=== PATIENT | female | born 1965 | race Caucasian/White ===

== ENCOUNTER 2018-09-07 19:54 | Inpatient (IN) | payer MEDICAID, OTHER ==
[2018-09-07 20:35] LABS: ADD MAN DIFF? NO
[2018-09-07 20:36] LABS: BASOPHILS % 0.5 % (0.0-2.0); EOSINOPHILS # 0.1 10^3/ul (0.0-0.5); HEMATOCRIT 35.4 % (37.0-47.0); HEMOGLOBIN 11.8 g/dl (12.0-16.0); LYMPHOCYTES # 2.7 10^3/ul (0.8-2.9); LYMPHOCYTES % 45.7 % (15.0-51.0); MEAN CORPUSCULAR HEMOGLOBIN 30.3 pg (29.0-33.0); MEAN CORPUSCULAR HGB CONC 33.3 g/dl (32.0-37.0); MEAN CORPUSCULAR VOLUME 90.8 fl (82.0-101.0); MEAN PLATELET VOLUME 9.8 fl (7.4-10.4); MONOCYTE # 0.5 10^3/ul (0.3-0.9); NEUTROPHIL # 2.6 10^3/ul (1.6-7.5); NEUTROPHILS % 43.6 % (39.0-77.0); PLATELET COUNT 282 10^3/UL (140-415)
[2018-09-07] MEDS: KETOROLAC 30 MG INJ IV (20:41)
[2018-09-07 20:55] LABS: ANION GAP 8 (5-13); BLOOD UREA NITROGEN 19 mg/dl (7-20); CALCIUM 9.6 mg/dl (8.4-10.2); CARBON DIOXIDE 26 mmol/L (21-31); CHLORIDE 106 mmol/L (97-110); CREATININE 0.88 mg/dl (0.44-1.00); Estimated GFR > 60 mL/min (>60); GLUCOSE 124 mg/dl (70-220); POTASSIUM 4.4 mmol/L (3.5-5.1); SODIUM 140 mmol/L (135-144)
[2018-09-07 21:07] LABS: TROPONIN-I < 0.012 ng/ml (0.000-0.120)
[2018-09-07 21:12] LABS: FREE T4 (FREE THYROXINE) 0.83 ng/dl (0.64-1.79)
[2018-09-07] MEDS: ASPIRIN 81 MG TAB PO (22:22)
[2018-09-07] MEDS: NITROGLYCERIN 2% 1 GM OINT PKT TD (22:22)
[2018-09-07] MEDS: NITROGLYCERIN (SL) 0.4 MG TAB SL (22:23)
[2018-09-07] MEDS ORDERED: ACETAMINOPHEN 325 MG TAB PO (23:30)
[2018-09-07] MEDS ORDERED: ONDANSETRON 4 MG INJ IV (23:30)
[2018-09-08] MEDS: RANITIDINE 150 MG TAB PO ×3 (01:08→20:09)
[2018-09-08] MEDS: AL HYDROX/MG HYDROX/SIMETH 30 ML CUP PO ×2 (01:08→20:09)
[2018-09-08] MEDS: NITROGLYCERIN (SL) 0.4 MG TAB SL (01:21)
[2018-09-08] MEDS: ENALAPRIL 5 MG TAB PO (01:58)
[2018-09-08 02:27] LABS: ADD UMIC YES; UR ASCORBIC ACID 20 mg/dL (NEGATIVE); UR BACTERIA FEW /HPF (NONE SEEN); UR BILIRUBIN (Dip) NEGATIVE (NEGATIVE); UR BLOOD (Dip) NEGATIVE (NEGATIVE); UR CALCIUM OXALATE CRYSTAL MANY /HPF (NONE SEEN); UR CLARITY CLOUDY (CLEAR); UR COLOR YELLOW (YELLOW); UR GLUCOSE (Dip) NEGATIVE (NEGATIVE); UR KETONES (Dip) NEGATIVE (NEGATIVE); UR LEUKOCYTE ESTERASE (Dip) 2+ Leu/ul (NEGATIVE); UR MUCUS MANY /HPF (NONE SEEN); UR NITRITE (Dip) NEGATIVE (NEGATIVE); UR RBC 5 /HPF (0-5); UR SPECIFIC GRAVITY (Dip) 1.031 (1.003-1.030); UR SQUAMOUS EPITHELIAL CELL MODERATE /HPF (FEW); UR TOTAL PROTEIN (Dip) 1+ mg/dl (NEGATIVE); UR TRANSITIONAL EPI CELL FEW /HPF (NONE SEEN); UR UROBILINOGEN (Dip) NEGATIVE (NEGATIVE); UR WBC > 182 /HPF (0-5)
[2018-09-08 02:42] LABS: MAGNESIUM 1.9 mg/dl (1.7-2.5)
[2018-09-08 02:42] LABS: AMYLASE 90 U/L (11-123); CREATINE KINASE 70 IU/L (23-200); IRON 69 ug/dl (35-150); LIPASE 123 U/L (23-300)
[2018-09-08 02:51] LABS: % IRON SATURATION 20 % SAT (22-52); TOTAL IRON BINDING CAPACITY 349 ug/dl (241-421)
[2018-09-08 02:54] LABS: CK-MB 0.67 ng/ml (0.0-2.4); TROPONIN-I < 0.012 ng/ml (0.000-0.120)
[2018-09-08] MEDS: MAGNESIUM SULFATE 2 GM/50 ML 50 ML IVPB (03:57)
[2018-09-08 09:15] LABS: CREATINE KINASE 66 IU/L (23-200)
[2018-09-08 09:26] LABS: CK INDEX 0.8; CK-MB 0.54 ng/ml (0.0-2.4); TROPONIN-I < 0.012 ng/ml (0.000-0.120)
[2018-09-08] MEDS: ACETAMINOPHEN 500 MG TAB PO (09:31)
[2018-09-08] MEDS: AMLODIPINE 5 MG TAB PO (09:31)
[2018-09-08] MEDS: ENOXAPARIN 40 MG/0.4 ML SYG SC (09:48)
[2018-09-08] MEDS: LOSARTAN 25 MG TAB PO (12:04)
[2018-09-08] MEDS: ATORVASTATIN 20 MG TAB PO (20:08)
[2018-09-09] MEDS: REGADENOSON 0.4 MG/5 ML SYG (08:58)
[2018-09-09] MEDS: RANITIDINE 150 MG TAB PO ×2 (10:22→20:52)
[2018-09-09] MEDS: AMLODIPINE 5 MG TAB PO (10:22)
[2018-09-09] MEDS: LOSARTAN 25 MG TAB PO (10:22)
[2018-09-09] MEDS: ENOXAPARIN 40 MG/0.4 ML SYG SC (10:23)
[2018-09-09] MEDS: NITROGLYCERIN (SL) 0.4 MG TAB SL ×3 (11:55→19:08)
[2018-09-09] MEDS: ONDANSETRON 4 MG INJ IV (11:58)
[2018-09-09] MEDS: ASPIRIN 81 MG TAB PO (13:10)
[2018-09-09] MEDS: METOPROLOL 25 MG TAB PO (13:10)
[2018-09-09] MEDS: IOHEXOL 100 ML (16:36)
[2018-09-09] MEDS: SOD CHLORIDE 0.9% 100 ML (16:36)
[2018-09-09] MEDS: ATORVASTATIN 20 MG TAB PO (20:51)
[2018-09-09] MEDS: SOD CHLORIDE 0.9% 1,000 ML IV (20:55)
[2018-09-10 06:08] LABS: ADD MAN DIFF? NO
[2018-09-10 06:20] LABS: WHITE BLOOD COUNT 5.4 10^3/ul (4.8-10.8)
[2018-09-10 06:20] LABS: BASOPHILS % 0.4 % (0.0-2.0); EOSINOPHILS # 0.1 10^3/ul (0.0-0.5); EOSINOPHILS % 1.9 % (0.0-7.0); HEMATOCRIT 35.3 % (37.0-47.0); HEMOGLOBIN 11.8 g/dl (12.0-16.0); LYMPHOCYTES # 2.1 10^3/ul (0.8-2.9); LYMPHOCYTES % 38.7 % (15.0-51.0); MEAN CORPUSCULAR HEMOGLOBIN 30.3 pg (29.0-33.0); MEAN CORPUSCULAR HGB CONC 33.4 g/dl (32.0-37.0); MEAN CORPUSCULAR VOLUME 90.7 fl (82.0-101.0); MEAN PLATELET VOLUME 9.7 fl (7.4-10.4); MONOCYTE # 0.4 10^3/ul (0.3-0.9); MONOCYTES % 8.1 % (0.0-11.0); NEUTROPHIL # 2.7 10^3/ul (1.6-7.5); NEUTROPHILS % 50.7 % (39.0-77.0); PLATELET COUNT 241 10^3/UL (140-415); RED BLOOD COUNT 3.89 10^6/ul (4.20-5.40); RED CELL DISTRIBUTION WIDTH 12.8 % (11.5-14.5)
[2018-09-10 06:44] LABS: ANION GAP 11 (5-13); BLOOD UREA NITROGEN 15 mg/dl (7-20); CALCIUM 9.1 mg/dl (8.4-10.2); CARBON DIOXIDE 25 mmol/L (21-31); CHLORIDE 107 mmol/L (97-110); Estimated GFR > 60 mL/min (>60); GLUCOSE 99 mg/dl (70-220); POTASSIUM 4.1 mmol/L (3.5-5.1); SODIUM 143 mmol/L (135-144)
[2018-09-10] MEDS: AMLODIPINE 5 MG TAB PO (08:00)
[2018-09-10] MEDS: LOSARTAN 25 MG TAB PO (08:00)
[2018-09-10] MEDS: RANITIDINE 150 MG TAB PO ×2 (08:00→21:11)
[2018-09-10] MEDS: ASPIRIN 81 MG TAB PO (08:00)
[2018-09-10] MEDS: ENOXAPARIN 40 MG/0.4 ML SYG SC (08:01)
[2018-09-10] MEDS ORDERED: IODIXANOL LOCM 100 ML BTL (08:40)
[2018-09-10] MEDS ORDERED: SOD CHLORIDE 0.9% 500 ML (08:40)
[2018-09-10] MEDS ORDERED: LIDOCAINE 2% (MDV) 20 ML INJ (08:40)
[2018-09-10] MEDS ORDERED: HEPARIN 1000 UNITS/ML 10 ML INJ (08:40)
[2018-09-10] MEDS ORDERED: FENTAnyl 50 MCG/ML VIAL (08:40)
[2018-09-10] MEDS ORDERED: VERAPAMIL 5 MG INJ (08:41)
[2018-09-10] MEDS ORDERED: MIDAZOLAM 1 MG/ML 2 ML INJ (08:41)
[2018-09-10] MEDS ORDERED: NITROGLYCERIN (IC) 100 MCG/ML INJ (08:41)
[2018-09-10] MEDS ORDERED: TICAGRELOR 90 MG TABLET (09:40)
[2018-09-10] MEDS ORDERED: ASPIRIN 325 MG TAB (09:40)
[2018-09-10] MEDS: SOD CHLORIDE 0.9% 1,000 ML IV (09:50)
[2018-09-10] MEDS: morphine 2 MG INJ IV (12:09)
[2018-09-10] MEDS: ACETAMINOPHEN 500 MG TAB PO (19:57)
[2018-09-10] MEDS: ATORVASTATIN 20 MG TAB PO (21:11)
[2018-09-10] MEDS: TICAGRELOR 90 MG TABLET PO (21:13)
[2018-09-11] MEDS: AMLODIPINE 5 MG TAB PO (09:24)
[2018-09-11] MEDS: LOSARTAN 25 MG TAB PO (09:24)
[2018-09-11] MEDS: RANITIDINE 150 MG TAB PO (09:24)
[2018-09-11] MEDS: ASPIRIN 81 MG TAB PO (09:24)
[2018-09-11] MEDS: TICAGRELOR 90 MG TABLET PO (09:25)
[2018-09-11] MEDS: ENOXAPARIN 40 MG/0.4 ML SYG SC (09:26)
== END 2018-09-11 13:45 | disposition home or self-care (01) | DRG 247 ==
LOC: E/R 19:54 → TEL 09-10 10:19
PROC: 027034Z Dilation of Coronary Artery, One Artery with Drug-eluting Intraluminal Device, Percutaneous Approach (ICD-10-PCS; principal; 2018-09-10 08:40)
PROC: 4A023N7 Measurement of Cardiac Sampling and Pressure, Left Heart, Percutaneous Approach (ICD-10-PCS; 2018-09-10 08:40)
DX: I25.119 Atherosclerotic heart disease of native coronary artery with unspecified angina pectoris (principal); I16.9 Hypertensive crisis, unspecified; I25.82 Chronic total occlusion of coronary artery; R07.9 Chest pain, unspecified; M17.12 Unilateral primary osteoarthritis, left knee; N94.3 Premenstrual tension syndrome; F41.9 Anxiety disorder, unspecified; E78.5 Hyperlipidemia, unspecified; R06.81 Apnea, not elsewhere classified; Z96.651 Presence of right artificial knee joint; R10.13 Epigastric pain; K21.9 Gastro-esophageal reflux disease without esophagitis; E83.42 Hypomagnesemia; D63.8 Anemia in other chronic diseases classified elsewhere; I25.2 Old myocardial infarction; Z87.891 Personal history of nicotine dependence
CPT/HCPCS: 36415; 71045; 75574; 76700; 78452; 80048; 81001; 82150; 82550; 82553; 83540; 83690; 83735; 84439; 84443; 84484; 85025; 87086; 93005; 93017; 93306; 96374; 99285-25; G0378

== ENCOUNTER 2018-09-11 16:05 | Inpatient (IN) | payer MEDICAID ==
[2018-09-11] MEDS ORDERED: NITROGLYCERIN (SL) 0.4 MG TAB (16:31)
[2018-09-11 16:37] LABS: ADD MAN DIFF? NO
[2018-09-11 16:40] LABS: WHITE BLOOD COUNT 5.5 10^3/ul (4.8-10.8)
[2018-09-11 16:40] LABS: BASOPHILS % 0.4 % (0.0-2.0); EOSINOPHILS # 0.1 10^3/ul (0.0-0.5); EOSINOPHILS % 0.9 % (0.0-7.0); HEMATOCRIT 35.3 % (37.0-47.0); LYMPHOCYTES # 1.7 10^3/ul (0.8-2.9); MEAN CORPUSCULAR HEMOGLOBIN 30.5 pg (29.0-33.0); MEAN CORPUSCULAR VOLUME 89.8 fl (82.0-101.0); MEAN PLATELET VOLUME 9.3 fl (7.4-10.4); MONOCYTE # 0.5 10^3/ul (0.3-0.9); MONOCYTES % 8.7 % (0.0-11.0); NEUTROPHIL # 3.3 10^3/ul (1.6-7.5); NEUTROPHILS % 59.8 % (39.0-77.0); PLATELET COUNT 254 10^3/UL (140-415); RED BLOOD COUNT 3.93 10^6/ul (4.20-5.40); RED CELL DISTRIBUTION WIDTH 12.7 % (11.5-14.5)
[2018-09-11] MEDS: NITROGLYCERIN (SL) 0.4 MG TAB SL (16:57)
[2018-09-11 16:59] LABS: ANION GAP 13 (5-13); BLOOD UREA NITROGEN 15 mg/dl (7-20); CALCIUM 10.1 mg/dl (8.4-10.2); CARBON DIOXIDE 26 mmol/L (21-31); CHLORIDE 102 mmol/L (97-110); CREATININE 0.88 mg/dl (0.44-1.00); Estimated GFR > 60 mL/min (>60); GLUCOSE 110 mg/dl (70-220); POTASSIUM 4.2 mmol/L (3.5-5.1); SODIUM 141 mmol/L (135-144)
[2018-09-11 17:11] LABS: TROPONIN-I 0.029 ng/ml (0.000-0.120)
[2018-09-11 20:21] LABS: TROPONIN-I 0.034 ng/ml (0.000-0.120)
[2018-09-11] MEDS: ASPIRIN 81 MG TAB PO (20:54)
[2018-09-11] MEDS ORDERED: ACETAMINOPHEN 325 MG TAB PO ×2 (21:00)
[2018-09-11] MEDS ORDERED: ONDANSETRON 4 MG INJ IV ×3 (21:00→23:00)
[2018-09-11] MEDS: METOPROLOL 50 MG TAB PO (22:00)
[2018-09-11] MEDS ORDERED: ACETAMINOPHEN 500 MG TAB PO (22:30)
[2018-09-11] MEDS ORDERED: NITROGLYCERIN (SL) 0.4 MG TAB SL (22:30)
[2018-09-11] MEDS ORDERED: morphine 2 MG INJ IV (22:30)
[2018-09-11] MEDS: morphine 2 MG INJ IV (22:48)
[2018-09-11] MEDS: RANITIDINE 150 MG TAB PO (22:49)
[2018-09-11 23:06] LABS: CREATINE KINASE 50 IU/L (23-200)
[2018-09-11 23:17] LABS: CK-MB 0.49 ng/ml (0.0-2.4)
[2018-09-12] MEDS: NITROGLYCERIN 0.1 MG/HR PATCH TRANSDERM ×2 (00:09→09:18)
[2018-09-12] MEDS: morphine 2 MG INJ IV (02:00)
[2018-09-12 07:39] LABS: CREATINE KINASE 55 IU/L (23-200)
[2018-09-12 07:52] LABS: CK INDEX 0.8; CK-MB 0.44 ng/ml (0.0-2.4)
[2018-09-12] MEDS: METOPROLOL 50 MG TAB PO (09:00)
[2018-09-12] MEDS: RANITIDINE 150 MG TAB PO (09:17)
[2018-09-12] MEDS: AMLODIPINE 5 MG TAB PO (09:17)
[2018-09-12] MEDS: ASPIRIN 81 MG TAB PO (09:18)
[2018-09-12] MEDS: LOSARTAN 25 MG TAB PO (09:18)
[2018-09-12] MEDS: TICAGRELOR 90 MG TABLET PO (09:21)
[2018-09-12 12:09] LABS: ADD MAN DIFF? NO
[2018-09-12 12:16] LABS: BASOPHILS % 0.2 % (0.0-2.0); EOSINOPHILS # 0.1 10^3/ul (0.0-0.5); EOSINOPHILS % 1.5 % (0.0-7.0); HEMATOCRIT 35.3 % (37.0-47.0); HEMOGLOBIN 11.6 g/dl (12.0-16.0); LYMPHOCYTES # 1.6 10^3/ul (0.8-2.9); LYMPHOCYTES % 29.5 % (15.0-51.0); MEAN CORPUSCULAR HEMOGLOBIN 30.1 pg (29.0-33.0); MEAN CORPUSCULAR HGB CONC 32.9 g/dl (32.0-37.0); MEAN CORPUSCULAR VOLUME 91.7 fl (82.0-101.0); MEAN PLATELET VOLUME 9.4 fl (7.4-10.4); MONOCYTE # 0.5 10^3/ul (0.3-0.9); MONOCYTES % 9.8 % (0.0-11.0); NEUTROPHIL # 3.2 10^3/ul (1.6-7.5); NEUTROPHILS % 58.8 % (39.0-77.0); PLATELET COUNT 246 10^3/UL (140-415); RED BLOOD COUNT 3.85 10^6/ul (4.20-5.40); RED CELL DISTRIBUTION WIDTH 12.8 % (11.5-14.5)
[2018-09-12 12:16] LABS: WHITE BLOOD COUNT 5.4 10^3/ul (4.8-10.8)
[2018-09-12 12:31] LABS: IRON 83 ug/dl (35-150)
[2018-09-12 12:34] LABS: ALANINE AMINOTRANSFERASE 42 IU/L (13-69); ALBUMIN 3.7 g/dl (3.3-4.9); ALBUMIN/GLOBULIN RATIO 1.05; ALKALINE PHOSPHATASE 54 IU/L (42-121); ANION GAP 11 (5-13); ASPARTATE AMINO TRANSFERASE 29 IU/L (15-46); BILIRUBIN,INDIRECT 0.1 mg/dl (0-1.1); BILIRUBIN,TOTAL 0.1 mg/dl (0.2-1.3); BLOOD UREA NITROGEN 16 mg/dl (7-20); CALCIUM 9.7 mg/dl (8.4-10.2); CARBON DIOXIDE 29 mmol/L (21-31); CHLORIDE 103 mmol/L (97-110); CREATINE KINASE 53 IU/L (23-200); CREATININE 0.73 mg/dl (0.44-1.00); Estimated GFR > 60 mL/min (>60); GLUCOSE 77 mg/dl (70-220); MAGNESIUM 1.9 mg/dl (1.7-2.5); POTASSIUM 4.4 mmol/L (3.5-5.1); SODIUM 143 mmol/L (135-144); TOTAL PROTEIN 7.2 g/dl (6.1-8.1)
[2018-09-12 12:40] LABS: % IRON SATURATION 22 % SAT (22-52); TOTAL IRON BINDING CAPACITY 377 ug/dl (241-421)
[2018-09-12 12:43] LABS: CK INDEX 0.6; CK-MB 0.32 ng/ml (0.0-2.4); TROPONIN-I < 0.012 ng/ml (0.000-0.120)
[2018-09-12] MEDS ORDERED: ATORVASTATIN 40 MG TAB PO (21:00)
== END 2018-09-12 17:00 | disposition home or self-care (01) | DRG 313 ==
LOC: E/R 16:05 → TEL 20:41
DX: R07.9 Chest pain, unspecified (principal); I10 Essential (primary) hypertension; D63.8 Anemia in other chronic diseases classified elsewhere; M17.12 Unilateral primary osteoarthritis, left knee; N94.3 Premenstrual tension syndrome; F41.9 Anxiety disorder, unspecified; E78.5 Hyperlipidemia, unspecified; R06.81 Apnea, not elsewhere classified; Z96.651 Presence of right artificial knee joint; R10.13 Epigastric pain; K21.9 Gastro-esophageal reflux disease without esophagitis; Z72.820 Sleep deprivation; E83.42 Hypomagnesemia; Z95.5 Presence of coronary angioplasty implant and graft; I25.10 Atherosclerotic heart disease of native coronary artery without angina pectoris
CPT/HCPCS: 36415; 71045; 80048; 80053; 82550; 82553; 83540; 83735; 84484; 85025; 87081; 90686; 93005; 99285-25

== ENCOUNTER 2018-09-14 18:51 | Observation (INO) | payer MEDICAID ==
[2018-09-14 19:43] LABS: ADD MAN DIFF? NO
[2018-09-14 19:49] LABS: BASOPHILS % 0.3 % (0.0-2.0); EOSINOPHILS # 0.1 10^3/ul (0.0-0.5); EOSINOPHILS % 1.3 % (0.0-7.0); HEMATOCRIT 33.3 % (37.0-47.0); HEMOGLOBIN 11.1 g/dl (12.0-16.0); LYMPHOCYTES # 2.1 10^3/ul (0.8-2.9); LYMPHOCYTES % 33.8 % (15.0-51.0); MEAN CORPUSCULAR HEMOGLOBIN 30.4 pg (29.0-33.0); MEAN CORPUSCULAR HGB CONC 33.3 g/dl (32.0-37.0); MEAN CORPUSCULAR VOLUME 91.2 fl (82.0-101.0); MEAN PLATELET VOLUME 9.4 fl (7.4-10.4); MONOCYTE # 0.6 10^3/ul (0.3-0.9); MONOCYTES % 8.8 % (0.0-11.0); NEUTROPHIL # 3.5 10^3/ul (1.6-7.5); NEUTROPHILS % 55.6 % (39.0-77.0); PLATELET COUNT 248 10^3/UL (140-415); RED BLOOD COUNT 3.65 10^6/ul (4.20-5.40); RED CELL DISTRIBUTION WIDTH 13.2 % (11.5-14.5)
[2018-09-14 19:49] LABS: WHITE BLOOD COUNT 6.2 10^3/ul (4.8-10.8)
[2018-09-14 20:08] LABS: INR 1.03; PARTIAL THROMBOPLASTIN TIME 28.4 Sec (23.0-35.0); PROTIME 13.6 Sec (11.9-14.9); PT RATIO 1.1
[2018-09-14 20:09] LABS: ANION GAP 12 (5-13); BLOOD UREA NITROGEN 17 mg/dl (7-20); CALCIUM 9.8 mg/dl (8.4-10.2); CARBON DIOXIDE 22 mmol/L (21-31); CHLORIDE 106 mmol/L (97-110); CREATININE 0.71 mg/dl (0.44-1.00); Estimated GFR > 60 mL/min (>60); GLUCOSE 104 mg/dl (70-220); POTASSIUM 4.2 mmol/L (3.5-5.1); SODIUM 140 mmol/L (135-144)
[2018-09-14 20:21] LABS: TROPONIN-I < 0.012 ng/ml (0.000-0.120)
[2018-09-14 20:27] LABS: D-DIMER 248.22 ng/ml (<460)
[2018-09-14] MEDS: ASPIRIN 81 MG TAB PO (20:39)
[2018-09-14] MEDS: NITROGLYCERIN 2% 1 GM OINT PKT TD (20:39)
[2018-09-14] MEDS ORDERED: ACETAMINOPHEN 500 MG TAB PO ×2 (21:00→21:30)
[2018-09-14] MEDS ORDERED: LORAZEPAM 0.5 MG TAB PO (21:00)
[2018-09-14] MEDS: morphine 2 MG INJ IV (22:20)
[2018-09-14] MEDS: TICAGRELOR 90 MG TABLET PO (22:54)
[2018-09-14 23:55] LABS: TROPONIN-I 0.015 ng/ml (0.000-0.120)
[2018-09-15] MEDS: morphine 2 MG INJ IV (04:41)
[2018-09-15 05:56] LABS: CREATINE KINASE 100 IU/L (23-200)
[2018-09-15 06:06] LABS: CK INDEX 0.9; CK-MB 0.88 ng/ml (0.0-2.4)
[2018-09-15] MEDS ORDERED: ACETAMINOPHEN 500 MG TAB PO (07:30)
[2018-09-15] MEDS: ENALAPRIL 2.5 MG TAB PO (08:35)
[2018-09-15] MEDS: LOSARTAN 25 MG TAB PO (08:35)
[2018-09-15] MEDS: AMLODIPINE 5 MG TAB PO (08:35)
[2018-09-15] MEDS: ASPIRIN 81 MG TAB PO (08:35)
[2018-09-15] MEDS: RANITIDINE 150 MG TAB PO (08:35)
[2018-09-15] MEDS: TICAGRELOR 90 MG TABLET PO (08:38)
[2018-09-15] MEDS: ENOXAPARIN 40 MG/0.4 ML SYG SC (08:39)
[2018-09-15] MEDS ORDERED: ATORVASTATIN 20 MG TAB PO (09:00)
[2018-09-15] MEDS ORDERED: PANTOPRAZOLE 40 MG INJ IV (09:00)
[2018-09-15] MEDS ORDERED: METOPROLOL 50 MG TAB PO (09:00)
[2018-09-15] MEDS: NITROGLYCERIN AEROSOL (4.9 GM) (09:36)
[2018-09-15] MEDS: IOHEXOL 100 ML (10:05)
[2018-09-15] MEDS: SOD CHLORIDE 0.9% 100 ML (10:05)
[2018-09-15] MEDS ORDERED: ATORVASTATIN 40 MG TAB PO (21:00)
== END 2018-09-15 15:45 | disposition home or self-care (01) ==
LOC: E/R 18:51 → 6WM 20:30
DX: R07.9 Chest pain, unspecified (principal); I25.10 Atherosclerotic heart disease of native coronary artery without angina pectoris; Z95.5 Presence of coronary angioplasty implant and graft; I10 Essential (primary) hypertension; E78.5 Hyperlipidemia, unspecified; Z79.82 Long term (current) use of aspirin; D63.8 Anemia in other chronic diseases classified elsewhere; M17.12 Unilateral primary osteoarthritis, left knee; F41.9 Anxiety disorder, unspecified; R06.83 Snoring; G47.30 Sleep apnea, unspecified; R10.13 Epigastric pain; K21.9 Gastro-esophageal reflux disease without esophagitis; Z72.820 Sleep deprivation; E83.42 Hypomagnesemia; M53.1 Cervicobrachial syndrome
CPT/HCPCS: 36415; 71045; 75574; 80048; 82550; 82553; 84484; 85025; 85378; 85610; 85730; 87081; 93005; 99285-25; G0378

== ENCOUNTER 2019-01-21 19:08 | Emergency (ER) | payer OTHER, MEDICAID ==
[2019-01-21 20:08] LABS: ADD MAN DIFF? NO
[2019-01-21 20:17] LABS: BASOPHILS % 0.6 % (0.0-2.0); EOSINOPHILS # 0.1 10^3/ul (0.0-0.5); EOSINOPHILS % 1.2 % (0.0-7.0); HEMATOCRIT 36.1 % (37.0-47.0); HEMOGLOBIN 11.9 g/dl (12.0-16.0); LYMPHOCYTES # 1.8 10^3/ul (0.8-2.9); LYMPHOCYTES % 33.8 % (15.0-51.0); MEAN CORPUSCULAR HEMOGLOBIN 30.1 pg (29.0-33.0); MEAN CORPUSCULAR VOLUME 91.4 fl (82.0-101.0); MEAN PLATELET VOLUME 9.4 fl (7.4-10.4); MONOCYTE # 0.5 10^3/ul (0.3-0.9); MONOCYTES % 9.9 % (0.0-11.0); NEUTROPHIL # 2.8 10^3/ul (1.6-7.5); NEUTROPHILS % 54.3 % (39.0-77.0); PLATELET COUNT 244 10^3/UL (140-415); RED BLOOD COUNT 3.95 10^6/ul (4.20-5.40); RED CELL DISTRIBUTION WIDTH 13.2 % (11.5-14.5)
[2019-01-21 20:17] LABS: WHITE BLOOD COUNT 5.2 10^3/ul (4.8-10.8)
[2019-01-21] MEDS: ALPRAZOLAM 0.25 MG TAB PO (20:25)
[2019-01-21] MEDS: KETOROLAC 15 MG INJ IV (20:25)
[2019-01-21] MEDS: SOD CHLORIDE 0.9% 1,000 ML IV (20:25)
[2019-01-21 20:36] LABS: ALANINE AMINOTRANSFERASE 98 IU/L (13-69); ALBUMIN 4.6 g/dl (3.3-4.9); ALBUMIN/GLOBULIN RATIO 1.35; ALKALINE PHOSPHATASE 72 IU/L (42-121); ANION GAP 12 (5-13); ASPARTATE AMINO TRANSFERASE 56 IU/L (15-46); BILIRUBIN,INDIRECT 0.2 mg/dl (0-1.1); BILIRUBIN,TOTAL 0.2 mg/dl (0.2-1.3); BLOOD UREA NITROGEN 14 mg/dl (7-20); CALCIUM 9.7 mg/dl (8.4-10.2); CARBON DIOXIDE 24 mmol/L (21-31); CHLORIDE 108 mmol/L (97-110); CREATININE 0.63 mg/dl (0.44-1.00); Estimated GFR > 60 mL/min (>60); GLUCOSE 98 mg/dl (70-220); LIPASE 134 U/L (23-300); POTASSIUM 3.8 mmol/L (3.5-5.1); SODIUM 144 mmol/L (135-144)
[2019-01-21 20:47] LABS: TROPONIN-I < 0.012 ng/ml (0.000-0.120)
== END 2019-01-21 21:51 | disposition home or self-care (01) ==
LOC: E/R 19:08
DX: R07.9 Chest pain, unspecified (principal); I25.10 Atherosclerotic heart disease of native coronary artery without angina pectoris; I10 Essential (primary) hypertension; Z79.82 Long term (current) use of aspirin; Z98.61 Coronary angioplasty status
CPT/HCPCS: 36415; 71045; 80053; 83690; 84484; 85025; 93005; 96374; 99285-25

== ENCOUNTER 2019-03-05 20:29 | Inpatient (IN) | payer OTHER ==
[2019-03-05 22:05] LABS: ADD MAN DIFF? NO
[2019-03-05 22:06] LABS: WHITE BLOOD COUNT 4.9 10^3/ul (4.8-10.8)
[2019-03-05 22:06] LABS: BASOPHILS % 0.4 % (0.0-2.0); EOSINOPHILS # 0.1 10^3/ul (0.0-0.5); EOSINOPHILS % 1.8 % (0.0-7.0); HEMATOCRIT 35.7 % (37.0-47.0); HEMOGLOBIN 11.6 g/dl (12.0-16.0); LYMPHOCYTES % 39.7 % (15.0-51.0); MEAN CORPUSCULAR HEMOGLOBIN 29.5 pg (29.0-33.0); MEAN CORPUSCULAR HGB CONC 32.5 g/dl (32.0-37.0); MEAN CORPUSCULAR VOLUME 90.8 fl (82.0-101.0); MEAN PLATELET VOLUME 8.9 fl (7.4-10.4); MONOCYTE # 0.4 10^3/ul (0.3-0.9); MONOCYTES % 8.7 % (0.0-11.0); NEUTROPHIL # 2.4 10^3/ul (1.6-7.5); NEUTROPHILS % 49.2 % (39.0-77.0); PLATELET COUNT 289 10^3/UL (140-415); RED BLOOD COUNT 3.93 10^6/ul (4.20-5.40); RED CELL DISTRIBUTION WIDTH 13.1 % (11.5-14.5)
[2019-03-05] MEDS: morphine 4 MG/ML VIAL IV (22:15)
[2019-03-05] MEDS: ONDANSETRON 4 MG INJ IV (22:15)
[2019-03-05] MEDS: NITROGLYCERIN 2% 1 GM OINT PKT TD (22:16)
[2019-03-05 22:29] LABS: ANION GAP 13 (5-13); BLOOD UREA NITROGEN 13 mg/dl (7-20); CALCIUM 10.1 mg/dl (8.4-10.2); CARBON DIOXIDE 25 mmol/L (21-31); CHLORIDE 104 mmol/L (97-110); CREATININE 0.64 mg/dl (0.44-1.00); Estimated GFR > 60 mL/min (>60); GLUCOSE 103 mg/dl (70-220); POTASSIUM 3.7 mmol/L (3.5-5.1); SODIUM 142 mmol/L (135-144)
[2019-03-05 22:40] LABS: TROPONIN-I < 0.012 ng/ml (0.000-0.120)
[2019-03-06] MEDS ORDERED: NACL 0.9% 3 ML SYG IV (00:30)
[2019-03-06] MEDS ORDERED: MAGNESIUM HYDROXIDE 30ML CUP PO (00:30)
[2019-03-06] MEDS ORDERED: ONDANSETRON 4 MG INJ IV (00:30)
[2019-03-06] MEDS ORDERED: BISACODYL (EC) 5 MG TAB PO (00:30)
[2019-03-06] MEDS ORDERED: ONDANSETRON 4 MG TAB PO (00:30)
[2019-03-06] MEDS ORDERED: DOCUSATE SODIUM 100 MG CAP PO (00:30)
[2019-03-06] MEDS ORDERED: ACETAMINOPHEN 325 MG TAB PO ×2 (00:30)
[2019-03-06 05:41] LABS: D-DIMER 324.89 ng/ml (<460)
[2019-03-06 05:41] LABS: ANION GAP 12 (5-13); BLOOD UREA NITROGEN 14 mg/dl (7-20); CALCIUM 9.5 mg/dl (8.4-10.2); CARBON DIOXIDE 26 mmol/L (21-31); CHLORIDE 105 mmol/L (97-110); CHOL/HDL RATIO 5.4 RATIO; CHOLESTEROL 222 mg/dl (100-200); CREATININE 0.71 mg/dl (0.44-1.00); Estimated GFR > 60 mL/min (>60); GLUCOSE 98 mg/dl (70-220); HDL CHOLESTEROL 41 mg/dl (37-92); LDL CHOLESTEROL,CALCULATED 151 mg/dl; POTASSIUM 3.7 mmol/L (3.5-5.1); SODIUM 143 mmol/L (135-144); TRIGLYCERIDES 151 mg/dl (0-149)
[2019-03-06 05:50] LABS: CREATINE KINASE 109 IU/L (23-200)
[2019-03-06 05:55] LABS: CK INDEX 0.6; CK-MB 0.68 ng/ml (0.0-2.4); TROPONIN-I < 0.012 ng/ml (0.000-0.120)
[2019-03-06 06:39] LABS: ERYTHROCYTE SEDIMENTATION RATE 30 mm/Hr (0-30)
[2019-03-06 07:18] LABS: HEMOGLOBIN A1C 5.8 % (0-5.9)
[2019-03-06] MEDS: FAMOTIDINE 20 MG TAB PO ×2 (08:33→20:50)
[2019-03-06] MEDS: LOSARTAN 25 MG TAB PO (08:34)
[2019-03-06] MEDS: AMLODIPINE 5 MG TAB PO (08:34)
[2019-03-06] MEDS: ASPIRIN 81 MG TAB PO (08:34)
[2019-03-06] MEDS: TICAGRELOR 90 MG TABLET PO ×2 (08:37→21:08)
[2019-03-06] MEDS: ENOXAPARIN 40 MG/0.4 ML SYG SC (09:00)
[2019-03-06] MEDS: morphine 2 MG INJ IV (11:14)
[2019-03-06 11:58] LABS: CREATINE KINASE 88 IU/L (23-200)
[2019-03-06 12:08] LABS: CK INDEX 0.6; TROPONIN-I < 0.012 ng/ml (0.000-0.120)
[2019-03-06] MEDS: ATORVASTATIN 40 MG TAB PO (20:50)
== END 2019-03-06 22:30 | disposition home or self-care (01) | DRG 206 ==
LOC: E/R 20:29 → TEL 03-06 00:26
DX: M94.0 Chondrocostal junction syndrome [Tietze] (principal); I16.0 Hypertensive urgency; I25.10 Atherosclerotic heart disease of native coronary artery without angina pectoris; I10 Essential (primary) hypertension; E78.5 Hyperlipidemia, unspecified
CPT/HCPCS: 36415; 71045; 80048; 80061; 82550; 82553; 83036; 84443; 84484; 85025; 85378; 85651; 93005; 96374; 96375; 99285-25